=== PATIENT | female | born 1940 | race Caucasian/White ===

== ENCOUNTER 2019-04-20 05:08 | Inpatient (IN) | payer MEDICARE, OTHER ==
[2019-04-20 05:24] LABS: ADD MAN DIFF? NO
[2019-04-20 05:26] LABS: ABNORMAL IP MESSAGE 1; BASOPHIL # 0.1 10^3/ul (0.0-0.1); BASOPHILS % 0.4 % (0.0-2.0); HEMATOCRIT 49.8 % (37.0-47.0); HEMOGLOBIN 14.5 g/dl (12.0-16.0); LYMPHOCYTES # 1.2 10^3/ul (0.8-2.9); LYMPHOCYTES % 8.5 % (15.0-51.0); MEAN CORPUSCULAR HEMOGLOBIN 30.7 pg (29.0-33.0); MEAN CORPUSCULAR HGB CONC 29.1 g/dl (32.0-37.0); MEAN CORPUSCULAR VOLUME 105.3 fl (82.0-101.0); MONOCYTE # 0.5 10^3/ul (0.3-0.9); MONOCYTES % 3.8 % (0.0-11.0); NEUTROPHIL # 11.7 10^3/ul (1.6-7.5); NEUTROPHILS % 86.5 % (39.0-77.0); NUCLEATED RED BLOOD CELLS # 0.1 10^3/ul (0.0-0.0); NUCLEATED RED BLOOD CELLS% 0.7 /100WBC (0.0-0.0); PLATELET COUNT 91 10^3/UL (140-415); RED BLOOD COUNT 4.73 10^6/ul (4.20-5.40); RED CELL DISTRIBUTION WIDTH 15.7 % (11.5-14.5)
[2019-04-20 05:26] LABS: WHITE BLOOD COUNT 13.6 10^3/ul (4.8-10.8)
[2019-04-20 05:29] LABS: AADO2 Arterial 476.1 mmHg (7.0-24.0); Allen Test ACCEPTAB; Arterial Base Excess -5.1 mmol/L (-3.0-3); Arterial Blood Gas Oxygen Sat 98.9 mmHG (95.0-100.0); Arterial COHb 0 % (0.0-3.0); Arterial Fraction of Oxyhgb 98.3 % (93.0-99.0); Arterial HCO3 20.3 mmol/L (22.0-26.0); Arterial MetHb 0.6 % (0.0-1.5); Arterial pCO2 39.3 mmhg (35-45); MODE MASK - NRB; Site Right Radial
[2019-04-20] MEDS: CEFEPIME 2GM/50 ML (PMX) 50 ML IVPB (05:39)
[2019-04-20] MEDS: ACETAMINOPHEN 650 MG SUPP PR (05:42)
[2019-04-20] MEDS: SOD CHLORIDE 0.9% IV (05:43)
[2019-04-20 05:45] LABS: INR 1.17; PT RATIO 1.2
[2019-04-20] MEDS: IPRATROPIUM (NEB) 0.5 MG/2.5 ML AMP HHN (05:45)
[2019-04-20] MEDS: ALBUTEROL 0.083% (NEB) 2.5 MG/3 ML AMP HHN (05:45)
[2019-04-20 05:46] LABS: PARTIAL THROMBOPLASTIN TIME 33.8 Sec (23.0-35.0)
[2019-04-20 05:50] LABS: URINE BLOOD (Dip) POC Negative (NEGATIVE); URINE GLUCOSE (Dip) POC Negative (NEGATIVE); URINE KETONES (Dip) POC 1+ (NEGATIVE); URINE LEUKOCYTE EST (Dip) POC Negative (NEGATIVE); URINE NITRITE (Dip) POC Negative (NEGATIVE); URINE TOTAL PROTEIN POC 1+ (NEGATIVE)
[2019-04-20] MEDS: VANCOMYCIN 1 GM (PMX) 250 ML IVPB (05:51)
[2019-04-20 06:04] LABS: ALANINE AMINOTRANSFERASE 985 IU/L (13-69); ALBUMIN 3.2 g/dl (3.3-4.9); ALBUMIN/GLOBULIN RATIO 1.33; ALKALINE PHOSPHATASE 104 IU/L (42-121); ANION GAP 11 (5-13); ASPARTATE AMINO TRANSFERASE 569 IU/L (15-46); BILIRUBIN,INDIRECT 0.6 mg/dl (0-1.1); BILIRUBIN,TOTAL 0.6 mg/dl (0.2-1.3); CALCIUM 9.9 mg/dl (8.4-10.2); CARBON DIOXIDE 28 mmol/L (21-31); CHLORIDE 117 mmol/L (97-110); CREATININE 1.76 mg/dl (0.44-1.00); POTASSIUM 4.4 mmol/L (3.5-5.1); SODIUM 156 mmol/L (135-144); TOTAL PROTEIN 5.6 g/dl (6.1-8.1)
[2019-04-20 06:06] LABS: GLUCOSE 613 mg/dl (70-220)
[2019-04-20 06:09] LABS: POSITIVE DIFF @See below
[2019-04-20 06:13] LABS: BLOOD UREA NITROGEN 134 mg/dl (7-20)
[2019-04-20 06:18] LABS: TROPONIN-I 0.164 ng/ml (0.000-0.120)
[2019-04-20] MEDS: ASPIRIN 300 MG SUPP PR (06:30)
[2019-04-20 06:42] LABS: ADD UMIC YES; UR AMORPHOUS CRYSTAL MODERATE /HPF (NONE SEEN); UR ASCORBIC ACID 40 mg/dL (NEGATIVE); UR BILIRUBIN (Dip) NEGATIVE (NEGATIVE); UR BLOOD (Dip) NEGATIVE (NEGATIVE); UR CLARITY CLOUDY (CLEAR); UR COLOR AMBER (YELLOW); UR GLUCOSE (Dip) 1+ mg/dL (NEGATIVE); UR KETONES (Dip) TRACE mg/dL (NEGATIVE); UR LEUKOCYTE ESTERASE (Dip) NEGATIVE Leu/ul (NEGATIVE); UR NITRITE (Dip) NEGATIVE (NEGATIVE); UR RBC 4 /HPF (0-5); UR SPECIFIC GRAVITY (Dip) 1.025 (1.003-1.030); UR SQUAMOUS EPITHELIAL CELL FEW /HPF (FEW); UR TOTAL PROTEIN (Dip) NEGATIVE (NEGATIVE); UR UROBILINOGEN (Dip) 1+ mg/dL (NEGATIVE); UR WBC 6 /HPF (0-5)
[2019-04-20] MEDS: NORepinephrine 8MG/250 ML (PMX 250 ML IV (06:55)
[2019-04-20] MEDS: ETOMIDATE 20 MG INJ IV (06:56)
[2019-04-20] MEDS: SUCCINYLCHOLINE CHLORIDE 100 MG/5 ML SYG IV (06:56)
[2019-04-20] MEDS ORDERED: SUCCINYLCHOLINE CHLORIDE 100 MG/5 ML SYG IV (07:00)
[2019-04-20] MEDS ORDERED: SOD CHLORIDE 0.9% 1,000 ML IV (07:32)
[2019-04-20 07:52] LABS: AADO2 Arterial 566.1 mmHg (7.0-24.0); Allen Test ACCEPTAB; Arterial Base Excess -16.9 mmol/L (-3.0-3); Arterial COHb 0.3 % (0.0-3.0); Arterial Fraction of Oxyhgb 61.6 % (93.0-99.0); Arterial HCO3 17.6 mmol/L (22.0-26.0); Arterial MetHb 0.4 % (0.0-1.5); Arterial pCO2 94.7 mmhg (35-45); MODE VENT - AC; Site Right Radial
[2019-04-20] MEDS ORDERED: DOCUSATE SODIUM 100 MG CAP PO (08:00)
[2019-04-20] MEDS ORDERED: BISACODYL (EC) 5 MG TAB PO (08:00)
[2019-04-20] MEDS ORDERED: AMIODARONE 900 MG in DEXTROSE 5% 482 ML IV (08:00)
[2019-04-20] MEDS ORDERED: NORepinephrine 8MG/250 ML (PMX 250 ML IV (08:00)
[2019-04-20] MEDS ORDERED: ALBUTEROL 0.083% (NEB) 2.5 MG/3 ML AMP NEB (08:00)
[2019-04-20] MEDS ORDERED: ACETAMINOPHEN 650MG/20.3ML CUP PO (08:00)
[2019-04-20] MEDS ORDERED: ONDANSETRON 4 MG INJ IV (08:00)
[2019-04-20] MEDS ORDERED: VANCOMYCIN IV PER PHARMACY XX (08:00)
[2019-04-20] MEDS ORDERED: IPRATROPIUM (NEB) 0.5 MG/2.5 ML AMP NEB (08:00)
[2019-04-20 08:09] LABS: LACTIC ACID 9.4 mmol/L (0.5-2.0)
[2019-04-20] MEDS: AMIODARONE 150MG/D5W BOLUS IV* (08:27)
[2019-04-20] MEDS: SOD CHLORIDE 0.9% 1,000 ML IV ×3 (08:27→13:08)
[2019-04-20] MEDS: HYDROCORTISONE 100 MG INJ IV ×2 (08:39→13:22)
[2019-04-20] MEDS ORDERED: PHENYLephrine 20MG IN 250 ML 250 ML IV (09:00)
[2019-04-20] MEDS: VASOPRESSIN 60 UNIT in SOD CHLORIDE 0.9% 57 ML IV (09:03)
[2019-04-20] MEDS: PHENYLephrine 20MG IN 250 ML 250 ML IV ×4 (09:22→12:30)
[2019-04-20] MEDS: FENTAnyl (DRIP) 1000 mcg/100mL 100 ML IV (11:00)
[2019-04-20] MEDS: MIDAZOLAM (DRIP) 50 mg/50 mL 50 ML IV (11:00)
[2019-04-20 11:17] LABS: LACTIC ACID 11.2 mmol/L (0.5-2.0)
[2019-04-20 11:55] LABS: AADO2 Arterial 583.4 mmHg (7.0-24.0); Allen Test ACCEPTAB; Arterial Base Excess -18.2 mmol/L (-3.0-3); Arterial Blood Gas Oxygen Sat 93.9 mmHG (95.0-100.0); Arterial COHb 0.3 % (0.0-3.0); Arterial Fraction of Oxyhgb 93.3 % (93.0-99.0); Arterial HCO3 11.3 mmol/L (22.0-26.0); Arterial MetHb 0.3 % (0.0-1.5); Arterial pCO2 40.4 mmhg (35-45); MODE VENT - AC; Site Right Radial
[2019-04-20] MEDS ORDERED: INSULIN HUMAN REGULAR 100 UNIT in SOD CHLORIDE 0.9% 99 ML IV (12:00)
[2019-04-20] MEDS ORDERED: ACETAMINOPHEN 325 MG TAB GTB (12:00)
[2019-04-20] MEDS ORDERED: DEXTROSE 50% 50 ML SYRINGE IV ×2 (12:00)
[2019-04-20] MEDS: SOD CHLORIDE 0.45% 1,000 ML IV (12:00)
[2019-04-20 12:23] LABS: CREATINE KINASE 114 IU/L (23-200)
[2019-04-20] MEDS ORDERED: NA BICARBONATE 8.4% 50 ML SYG (12:27)
[2019-04-20 12:28] LABS: ANION GAP 18 (5-13); CALCIUM 7.7 mg/dl (8.4-10.2); CARBON DIOXIDE 14 mmol/L (21-31); CHLORIDE 125 mmol/L (97-110); CREATININE 1.73 mg/dl (0.44-1.00); POTASSIUM 4.4 mmol/L (3.5-5.1); SODIUM 157 mmol/L (135-144)
[2019-04-20] MEDS: DOCUSATE SODIUM 10 MG/ML (10ML CUP) GTB (12:30)
[2019-04-20] MEDS: MULTIVITAMINS THERAPEUTIC TAB GTB (12:30)
[2019-04-20] MEDS: ASCORBIC ACID 500 MG TAB GTB (12:30)
[2019-04-20] MEDS: SODIUM CHLORIDE 0.45% 500 ML BAG IV* (12:32)
[2019-04-20] MEDS: ACCU-CHEK XX ×6 (12:33→17:00)
[2019-04-20 12:36] LABS: CK INDEX 2.4; CK-MB 2.75 ng/ml (0.0-2.4)
[2019-04-20 12:38] LABS: TROPONIN-I 0.417 ng/ml (0.000-0.120)
[2019-04-20 12:41] LABS: BLOOD UREA NITROGEN 122 mg/dl (7-20)
[2019-04-20 12:46] LABS: GLUCOSE 587 mg/dl (70-220)
[2019-04-20] MEDS: NA BICARBONATE 8.4% 50 ML SYG IV (12:53)
[2019-04-20] MEDS: HYDROCORTISONE 250 MG INJ IV (12:57)
[2019-04-20] MEDS: ALBUMIN HUMAN 25% 100 ML IV (13:23)
[2019-04-20] MEDS: INSULIN REGULAR, HUMAN 100 UNIT/1 ML 3ML VIAL IV (13:34)
[2019-04-20] MEDS: SOD CHLORIDE 0.45% IV (15:00)
[2019-04-20] MEDS: VASOPRESSIN IV (15:00)
[2019-04-20] MEDS ORDERED: PHENYLephrine 80 MG in DEXTROSE 5% 242 ML IV (15:00)
[2019-04-20] MEDS: SODIUM BICARBONATE (IV ADD) 100 MEQ in SOD CHLORIDE 0.45% 1,000 ML IV (15:43)
[2019-04-20 16:32] LABS: ADD MAN DIFF? NO
[2019-04-20 16:35] LABS: ABNORMAL IP MESSAGE 1; BASOPHIL # 0.1 10^3/ul (0.0-0.1); BASOPHILS % 0.4 % (0.0-2.0); HEMATOCRIT 42.1 % (37.0-47.0); LYMPHOCYTES % 7.1 % (15.0-51.0); MEAN CORPUSCULAR HEMOGLOBIN 30.8 pg (29.0-33.0); MEAN CORPUSCULAR HGB CONC 28.5 g/dl (32.0-37.0); MEAN CORPUSCULAR VOLUME 108.2 fl (82.0-101.0); MONOCYTE # 0.3 10^3/ul (0.3-0.9); MONOCYTES % 2.4 % (0.0-11.0); NEUTROPHIL # 12.2 10^3/ul (1.6-7.5); NEUTROPHILS % 87.3 % (39.0-77.0); NUCLEATED RED BLOOD CELLS # 0.2 10^3/ul (0.0-0.0); NUCLEATED RED BLOOD CELLS% 1.7 /100WBC (0.0-0.0); PLATELET COUNT 54 10^3/UL (140-415); RED BLOOD COUNT 3.89 10^6/ul (4.20-5.40); RED CELL DISTRIBUTION WIDTH 15.4 % (11.5-14.5)
[2019-04-20 16:38] LABS: POSITIVE DIFF @See below
[2019-04-20 16:53] LABS: CREATINE KINASE 206 IU/L (23-200)
[2019-04-20 17:06] LABS: CK INDEX 2.2; CK-MB 4.54 ng/ml (0.0-2.4); TROPONIN-I 0.401 ng/ml (0.000-0.120)
[2019-04-20 17:27] LABS: BLOOD UREA NITROGEN 114 mg/dl (7-20); CALCIUM 7.1 mg/dl (8.4-10.2); CARBON DIOXIDE 15 mmol/L (21-31); CREATININE 1.52 mg/dl (0.44-1.00); POTASSIUM 3.9 mmol/L (3.5-5.1)
[2019-04-20 17:36] LABS: ANION GAP 18 (5-13); CHLORIDE 129 mmol/L (97-110)
[2019-04-20 17:40] LABS: SODIUM 162 mmol/L (135-144)
[2019-04-20 17:41] LABS: GLUCOSE 501 mg/dl (70-220)
[2019-04-20 18:32] LABS: ANISOCYTOSIS 1+ (0-0); BAND NEUTROPHILS #M 3.3 10^3/ul (0.0-0.6); BAND NEUTROPHILS % (M) 24 % (0-4); ERYTHROBLAST% (NRBC) (M) 6 % (0-0); LYMPHOCYTES #M 0.7 10^3/ul (0.8-2.9); LYMPHOCYTES % (M) 5 % (15-51); METAMYELOCYTES #M 0.4 10^3/ul (0.0-0.0); METAMYELOCYTES %M 3 % (0-0); MICROCYTOSIS 1+ (0-0); MONOCYTE #M 0.1 10^3/ul (0.3-0.9); MONOCYTES % (M) 1 % (0-11); REACTIVE LYMPHOCYTES #M 0.4 10^3/ul (0.0-0.0); REACTIVE LYMPHOCYTES% (M) 3 % (0-0); SEG NEUT #M 9.4 10^3/ul (1.6-7.5); SEGMENTED NEUTROPHILS (M) % 64 % (39-77); SMUDGE%M 24 % (0-0)
[2019-04-20] MEDS: morphine (DRIP) 100 MG/100 ML 100 ML IV (20:26)
[2019-04-21] MEDS ORDERED: EPINEPHrine 0.1 MG/ML SYG
[2019-04-21] MEDS ORDERED: CEFEPIME 1GM/50 ML (PMX) 50 ML IVPB (05:00)
[2019-04-21] MEDS ORDERED: PANTOPRAZOLE 40 MG INJ IV (06:00)
== END 2019-04-21 01:56 | disposition expired | DRG 871 ==
LOC: E/R 05:08 → ICU 06:41
PROVIDERS: Internal Medicine
PROC: 5A12012 Performance of Cardiac Output, Single, Manual (ICD-10-PCS; principal; 2019-04-20)
PROC: 5A1935Z Respiratory Ventilation, Less than 24 Consecutive Hours (ICD-10-PCS; 2019-04-20)
PROC: 5A2204Z Restoration of Cardiac Rhythm, Single (ICD-10-PCS; 2019-04-20)
PROC: 0BH17EZ Insertion of Endotracheal Airway into Trachea, Via Natural or Artificial Opening (ICD-10-PCS; 2019-04-20)
PROC: 02HV33Z Insertion of Infusion Device into Superior Vena Cava, Percutaneous Approach (ICD-10-PCS; 2019-04-20)
DX: A41.9 Sepsis, unspecified organism (principal); J18.9 Pneumonia, unspecified organism; R65.21 Severe sepsis with septic shock; I21.A1 Myocardial infarction type 2; J96.01 Acute respiratory failure with hypoxia; N39.0 Urinary tract infection, site not specified; E87.2 Acidosis; N17.9 Acute kidney failure, unspecified; E87.0 Hyperosmolality and hypernatremia; G93.40 Encephalopathy, unspecified; D69.6 Thrombocytopenia, unspecified; E86.0 Dehydration; E78.5 Hyperlipidemia, unspecified; E11.65 Type 2 diabetes mellitus with hyperglycemia; G20 Parkinson's disease; F02.80 Dementia in other diseases classified elsewhere, unspecified severity, without behavioral disturbance, psychotic disturbance, mood disturbance, and anxiety; I10 Essential (primary) hypertension; I46.9 Cardiac arrest, cause unspecified; L89.159 Pressure ulcer of sacral region, unspecified stage; R13.10 Dysphagia, unspecified; R74.0 Nonspecific elevation of levels of transaminase and lactic acid dehydrogenase [LDH]; Z93.1 Gastrostomy status; Z79.4 Long term (current) use of insulin
CPT/HCPCS: 31500; 36600; 71045; 80048; 80053; 81001; 81003; 82550; 82553; 82803; 82962; 83605; 84484; 85025; 85610; 85730; 87040-91; 87070; 87086; 92950; 93005; 93306; 94002; 94664; 95819; 96374; 96375; 99285-25